=== PATIENT | male | born 1980 ===

== ENCOUNTER 2017-09-19 02:22 | Emergency (ER) | payer OTHER ==
--- NOTE | 2017-09-19 02:27 | EDPHY ---
H & P Stated Complaint: R shoulder inj HPI/ROS: HPI CHIEF COMPLAINT: Right arm pain, right shoulder pain HISTORY OF PRESENT ILLNESS: Patient very pleasant 37-year-old male, otherwise healthy takes Suboxone for opiate addiction, he presents emergency room with right shoulder pain and right arm pain status post mechanical trip and fall this evening. Patient [place] tripped on a rock and landed on his right shoulder. He has been drinking alcohol. He states that he drank a large amount this evening. Multiple beers multiple shots. He cannot quantify. States he was intoxicated earlier and then fell. Denies any other area of injury. Denies head trauma neck pain denies abdominal pain chest pain or shortness of breath. Main complaint is right shoulder pain. Complains of 7/10 pain to the humeral neck region. Limited range of motion due to pain. Past Medical History: Denies significant medical history except for remote opioid addiction to Suboxone. Past Surgical History: Right knee surgery. Social History: Denies daily use of drugs alcohol tobacco. He did drink alcohol this evening. Family History: Noncontributory ROS REVIEW OF SYSTEMS: A comprehensive 10 point review of systems is otherwise negative aside from elements mentioned in the history of present illness. Exam Constitutional smells of alcohol, appears nontoxic triage nursing summary reviewed, vital signs reviewed, awake/alert. Eyes normal conjunctivae and sclera, EOMI, PERRLA. HENT normal inspection, atraumatic, moist mucus membranes, no epistaxis, neck supple/ no meningismus, no raccoon eyes. Respiratory clear to auscultation bilaterally, normal breath sounds, no respiratory distress, no wheezing. Cardiovascular rate normal, regular rhythm, no murmur, no edema, distal pulses normal. Gastrointestinal soft, non-tender, no rebound, no guarding, normal bowel sounds, no distension, no pulsatile mass. Genitourinary no CVA tenderness. Musculoskeletal Right ARM: tender palpation over the humeral neck. Neurovascular intact. Good distal pulse. 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 Good cap refill. Limited range of motion due to pain. No AC joint tenderness. No clavicular pain. Tender palpation over humeral neck. Abrasion over the elbow but no laceration. Full range of motion of the elbow. no midline vertebral tenderness, full range of motion, no calf swelling, no tenderness of extremities , no meningismus, good pulses, neurovascularly intact. Skin pink, warm, & dry, no rash, skin atraumatic. Neurologic awake, alert and oriented x 3, AAOx3, moves all 4 extremities equally, motor intact, sensory intact, CN II-XII intact, normal cerebellar, normal vision, normal speech. Psychiatric normal mood/affect. Heme/Lymph/Immune no lymphadenopathy. Differential Diagnosis: Includes but is not limited to and in no particular order hide shoulder strain, right shoulder contusion, fracture of the shoulder, fracture of the humerus, AC joint separation, ligamentous injury, musculoskeletal tear, rotator cuff injury, shoulder dislocation Medical Decision Making: Plan for this patient IV establishment with IV fentanyl for acute pain control 50 mcg as he appears very uncomfortable. X-ray the right humerus, x-ray of the right shoulder. Re-evaluation: 310: X-ray of the right shoulder this shows dislocated shoulder, with most likely Hill-Sachs fracture. With any manipulation of this patient's shoulder he has a great deal of discomfort. I have consented him for conscious sedation. Will use propofol 100 mg. He has been drinking alcohol this evening will be careful how much we give him given the combination of propofol and alcohol. Plan will be conscious sedation developed relocate his dislocated shoulder. Procedure: Procedural sedation. Indication: Right shoulder fracture and dislocation A pre-sedation evaluation was completed on the patient just prior to the procedure. Patient is an appropriate candidate for procedural sedation with ASA class 1 E. The risks of the sedation were discussed including but not limited to dysrhythmia, need for airway intervention or general anesthesia, disability, ; and verbal consent obtained. A timeout was observed and patient's identity confirmed. The patient was sedated with 240 mg Propofol The patient was monitored with continuous pulse oximetry, capnography, and ekg monitor tech. There were no complications and no significant hypoxemia. I remained at the bedside for the sedation. The total time I spent in the procedural sedation was 30mins . Right shoulder x-ray reviewed. Shows dislocation with fracture. Interpreted by me. Most likely Hill-Sachs fracture. Post reduction of right shoulder he is neurovascularly intact. He has been placed in a sling for comfort and immobilization. He will need to follow up with Orthopedics. Post reduction x-ray reviewed. Good alignment. Patient understands to follow up with Orthopedics. Additionally he is neurovascularly intact. Good distal pulse. Axillary nerve intact. Comfortable in a sling. He has requested a very limited supply of [place]. Which I will provide for him. He does understand note that he is on Suboxone and has opioid addiction history. He will only get 10 pills. He understands very limited supply of narcotic pain medicine. Source: Patient - Personal History Current Tetanus/Diphtheria Vaccine: Yes - Medical/Surgical History Hx Asthma: No Hx Chronic Respiratory Disease: No Hx Diabetes: No Hx Cardiac Disease: No Hx Renal Disease: No Hx Cirrhosis: No Hx Alcoholism: No Hx HIV/AIDS: No Hx Splenectomy or Spleen Trauma: No Other PMH: ETOH/drug abuse - Social History Smoking Status: Current every day smoker Constitutional: Initial Vital Signs Heart Rate 90 09/19/17 02:23 Respiratory Rate 20 09/19/17 02:23 O2 Sat (%) 98 09/19/17 02:23 O2 Delivery Mode [Post Room Air Procedure 2nd] O2 Delivery Mode [Post Room Air Procedure 1st] O2 Delivery Mode [Procedural Non-Rebreather Mask 4th] O2 Delivery Mode [Procedural Non-Rebreather Mask 3rd] O2 Delivery Mode [Procedural Non-Rebreather Mask 2nd] O2 Delivery Mode [Procedural Non-Rebreather Mask 1st] O2 Delivery Mode [.Immediate Non-Rebreather Mask Pre-Procedure] O2 Delivery Mode Room Air O2 (L/minute) [Procedural 4th] 15 O2 (L/minute) [Procedural 3rd] 15 O2 (L/minute) [Procedural 2nd] 15 O2 (L/minute) [Procedural 1st] 15 O2 (L/minute) [.Immediate Pre- 15 Procedure] Allergies/Adverse Reactions: No Known Allergies Allergy (Unverified 09/19/17 02:22) Home Medications: Medication Instructions Recorded Hydrocodone/APAP 5/325 [[place] 1 - 2 tab PO Q4H PRN #10 tab 09/19/17 5/325] Medical Decision Making - Data Points Medications Given: Discontinued Medications Fentanyl (Sublimaze) 50 mcg IVP EDNOW ONE Stop: 09/19/17 02:34 Last Admin: 09/19/17 02:51 Dose: 50 mcg Sodium Chloride (Ns) 1,000 mls @ 0 mls/hr IV ONCE ONE PRN Reason: Wide Open Stop: 09/19/17 04:04 Last Admin: 09/19/17 04:04 Dose: 1,000 mls Ondansetron HCl (Zofran) 4 mg IVP EDNOW ONE Stop: 09/19/17 02:34 Last Admin: 09/19/17 02:51 Dose: 4 mg Propofol (Diprivan) 100 mg IVP EDNOW ONE Stop: 09/19/17 03:26 Last Admin: 09/19/17 03:26 Dose: 100 mg Propofol (Diprivan) 100 mg IVP EDNOW ONE Stop: 09/19/17 03:30 Last Admin: 09/19/17 03:32 Dose: Not Given Departure - Departure Disposition: Home, Routine, Self-Care Clinical Impression: Shoulder fracture, right Qualifiers: Encounter type: initial encounter Fracture type: closed Qualified Code(s): S42.91XA - Fracture of right shoulder girdle, part unspecified, initial encounter for closed fracture Shoulder dislocation Qualifiers: Encounter type: initial encounter Laterality: right Qualified Code(s): S43.004A - Unspecified dislocation of right shoulder joint, initial encounter Condition: Good Instructions: Arm Fracture in Adults (ED), Shoulder Dislocation (ED) Additional Instructions: 1. Ice your shoulder. 2. Please follow up with Orthopedics. Please call for an appointment. 3. Stay in your sling for comfort. Referrals: NONE *PRIMARY CARE P,. [Primary Care Provider] - As per Instructions Trae Hercules MD [Medical Doctor] - As per Instructions Prescriptions: Hydrocodone/APAP 5/325 [[place] 5/325] 1 - 2 tab PO Q4H PRN #10 tab PRN Reason: Pain, Moderate
[2017-09-19] MEDS ORDERED: ONDANSETRON 4 MG/2 ML VIAL IVP ONE (02:33)
[2017-09-19] MEDS ORDERED: fentaNYL 100 MCG/2 ML INJ IVP ONE (02:33)
[2017-09-19] MEDS ORDERED: PROPOFOL 200 MG/20 ML VIAL ONE (03:24)
[2017-09-19] MEDS ORDERED: PROPOFOL 200 MG/20 ML VIAL IVP ONE ×2 (03:25→03:29)
[2017-09-19] MEDS ORDERED: NS 1,000 ML IV ONE (04:03)
[2017-09-19 05:08] VITALS: RESP 15; TEMP 98.2
[2017-09-19 05:31] VITALS: BP 136/82; PULSE 84; O2SAT 97
== END 2017-09-19 05:30 | disposition home or self-care (01) ==
PROC: 0RSJXZZ Reposition Right Shoulder Joint, External Approach (ICD-10-PCS; principal; 2017-09-19)
DX: S42.91XA Fracture of right shoulder girdle, part unspecified, initial encounter for closed fracture (principal); S43.004A Unspecified dislocation of right shoulder joint, initial encounter; F17.200 Nicotine dependence, unspecified, uncomplicated; W01.0XXA Fall on same level from slipping, tripping and stumbling without subsequent striking against object, initial encounter; Y99.8 Other external cause status; Y93.01 Activity, walking, marching and hiking
CPT/HCPCS: 96374; J2405; J2704; J3010; L3980